=== PATIENT | male | born 2000 | race Caucasian/White ===

== ENCOUNTER 2021-04-28 18:34 | Emergency (ER) | payer SELFPAY ==
[~2021-04-28] VITALS: Ht 167.6 cm; Wt 68.0 kg
[~2021-04-28 18:34] MED LIST: ADVIL; SUDAFED; [UNRECOGNIZED DRUG - REMARK]
[2021-04-28 18:42] VITALS: BP 124/66
--- NOTE | 2021-04-28 19:00 | NUR ---
AMBULATED TO BED #9
[2021-04-28] MEDS ORDERED: ATA25 PO (19:21)
--- NOTE | 2021-04-28 19:34 | NUR ---
pt refused PCR swab. Dr. Nash made aware.
--- NOTE | 2021-04-28 19:38 | NUR ---
d/c with VSS. d/c eduation given. opportunity to ask questions given and answered. rx of atarax given.
== END 2021-04-28 19:36 | disposition home or self-care (01) ==
LOC: MED 18:34
DX: R00.2 Palpitations (principal); F41.9 Anxiety disorder, unspecified; R07.9 Chest pain, unspecified; J45.909 Unspecified asthma, uncomplicated; Z79.899 Other long term (current) drug therapy
CPT/HCPCS: 93005; 99283